=== PATIENT | male | born 1965 | race Caucasian/White ===

== ENCOUNTER 2019-10-23 17:44 | Emergency (ER) | payer OTHER ==
[~2019-10-23] VITALS: Ht 180.3 cm; Wt 81.8 kg
[2019-10-23 18:22] VITALS: BP 134/68
[2019-10-23] MEDS ORDERED: acetaminophen 325mg tablet PO ONE (20:00)
== END 2019-10-23 20:17 | disposition home or self-care (01) ==
LOC: ER 17:45
DX: J11.1 Influenza due to unidentified influenza virus with other respiratory manifestations (principal); Z56.0 Unemployment, unspecified
CPT/HCPCS: 99284

== ENCOUNTER 2019-12-06 18:01 | Emergency (ER) | payer SELFPAY ==
[~2019-12-06] VITALS: Ht 180.3 cm; Wt 82.3 kg
[2019-12-06 18:23] VITALS: BP 116/77
[2019-12-06] MEDS ORDERED: PERM60CR19 TP (19:17)
[2019-12-06] MEDS ORDERED: PRED20TA PO (19:17)
== END 2019-12-06 20:06 | disposition home or self-care (01) ==
LOC: ER 18:02
DX: L30.9 Dermatitis, unspecified (principal); Z56.0 Unemployment, unspecified; Z79.899 Other long term (current) drug therapy
CPT/HCPCS: 99283

== ENCOUNTER 2020-07-04 10:07 | Inpatient (IN) | payer OTHER ==
[~2020-07-04] VITALS: Ht 180.3 cm; Wt 87.3 kg
[2020-07-04 11:40] LABS: BASOPHILS % (AUTO) 0.7 % (0-1); EOSINOPHILS # (AUTO) 0.1 X10'3 (0-0.9); EOSINOPHILS % (AUTO) 2.2 % (0-6); HEMATOCRIT 26.4 % (42.0-52.0); HEMOGLOBIN 8.9 g/dl (14.0-17.9); LYMPHOCYTES # (AUTO) 0.8 X10'3 (1.1-4.8); LYMPHOCYTES % (AUTO) 17.7 % (21-51); MEAN CORPUSCULAR HEMOGLOBIN 30.5 PG (27.0-31.0); MEAN CORPUSCULAR HGB CONC 33.8 g/dL (33.0-36.5); MEAN CORPUSCULAR VOLUME 90.3 FL (78-98); MEAN PLATELET VOLUME 9.5 FL (7.4-10.4); MONOCYTES # (AUTO) 0.4 X10'3 (0-0.9); MONOCYTES % (AUTO) 8.7 % (2-12); NEUTROPHILS # (AUTO) 3.4 X10'3 (1.8-7.7); NEUTROPHILS % (AUTO) 70.7 % (42-75); PLATELET COUNT 165 X10'3 (140-440); RED BLOOD COUNT 2.93 X10'6 (4.70-6.10); RED CELL DISTRIBUTION WIDTH 14.9 % (11.5-14.5); WHITE BLOOD COUNT 4.8 X10'3 (4.5-11.0)
[2020-07-04 11:43] LABS: PARTIAL THROMBOPLASTIN TIME 27 SECONDS (22-32)
[2020-07-04 11:45] LABS: ALANINE AMINOTRANSFERASE 16 U/L (12-78); ALBUMIN 3.3 G/DL (3.4-5.0); ALBUMIN/GLOBULIN RATIO 1.4 (1.1-1.5); ALKALINE PHOSPHATASE 62 IU/L (46-116); ANION GAP 5 (8-16); ASPARTATE AMINO TRANSFERASE 15 U/L (10-37); BILIRUBIN,TOTAL 0.5 MG/DL (0.1-1.0); BLOOD UREA NITROGEN 26 MG/DL (7-18); BUN/CREATININE RATIO 26.3 (5.4-32.0); CALCIUM 8.1 MG/DL (8.5-10.1); CHLORIDE 106 MMOL/L (99-107); CREATININE 0.99 MG/DL (0.60-1.10); GLUCOSE 85 MG/DL (70-104); POTASSIUM 4.7 MMOL/L (3.5-5.1); SODIUM 139 MMOL/L (135-145); TOTAL CARBON DIOXIDE 27.8 MMOL/L (24-32); TOTAL PROTEIN 5.7 G/DL (6.4-8.2); eGFR 78 ML/MIN
[2020-07-04] MEDS ORDERED: tranexamic acid 100mg/ml inj. IV ONE (11:50)
[2020-07-04] MEDS ORDERED: normal saline 1000ML IV soln IVB ONE (12:00)
--- NOTE | 2020-07-04 12:04 | NUR ---
NATHANIEL KELLY ASK FOR PT TO BE PLACED ON CLEAN RICE GRADER AND REEL TENDER. PT NOW ON MONITOR ROBIN NOTIFIED
[2020-07-04] MEDS ORDERED: acetaminophen 325mg tablet PO PRN (12:40)
[2020-07-04] MEDS ORDERED: morphine 2 MG/ML inj. syringe IV PRN (12:40)
[2020-07-04] MEDS ORDERED: mag hydrox/Alum hydrox/simeth 30ml oral suspension PO PRN (12:40)
[2020-07-04] MEDS ORDERED: ondansetron/PF 4mg/2ml inj IV PRN (12:40)
[2020-07-04] MEDS ORDERED: magnesium hydroxide 30ml (MOM) UD suspension PO PRN (12:40)
[2020-07-04] MEDS ORDERED: NO HOME MEDS (13:17)
[2020-07-04] MEDS ORDERED: PEG 3350/Na sulf,bicarb,Cl/KCl oral sol 4 liter bottle PO ONE ×4 (13:20→18:30)
[2020-07-04] MEDS ORDERED: pantoprazole 40MG/NS 100ML BAG 100 ML IV ONE (13:30)
[2020-07-04] MEDS: normal saline 1000ml 1,000 ML IV SCH ×2 (14:43→22:37)
[2020-07-04 14:50] VITALS: BP 96/62
[2020-07-04 16:08] LABS: OCCULT BLOOD STOOL POSITIVE (Neg)
[2020-07-04 18:00] VITALS: BP 95/58
--- NOTE | 2020-07-04 18:16 | NUR ---
Problems reprioritized. Patient report given, questions answered & plan of care reviewed with SHILPI Ching.
--- NOTE | 2020-07-04 18:40 | NUR ---
I have received report from Geovany RN and had the opportunity to ask questions and assume patient care.
[2020-07-04 20:00] VITALS: BP_SYST 94; BP_SYST 97; BP_SYST 98; BP_DIAS 53; BP_DIAS 55; BP_DIAS 67
[2020-07-05] VITALS (13 sets, daily range): BP systolic 98–115; BP diastolic 53–73
[2020-07-05] MEDS: normal saline 1000ml 1,000 ML IV SCH ×2 (01:25→21:16)
--- NOTE | 2020-07-05 06:37 | NUR ---
Problems reprioritized. Patient report given, questions answered & plan of care reviewed with Eve DOBBINS.
--- NOTE | 2020-07-05 11:41 | NUR ---
Pt. taken off floor to GI lab for colonoscopy.
[2020-07-05] MEDS ORDERED: fentaNYL/PF 50MCG/1 ML 2ML syringe ONE (11:51)
[2020-07-05] MEDS ORDERED: MIDAZolam 5mg/5ml vial ONE (11:52)
--- NOTE | 2020-07-05 14:12 | NUR ---
Pt. returned to floor. Report obtained from GI lab. Pt does have ascending colon mass. Biopsy was taken and Christiane was consulted. Pt. to remain NPO for possible surgery.
--- NOTE | 2020-07-05 16:23 | NUR ---
Dr. Grande consulted with pt and stated surgery on Tuesday, bowel prep on Tuesday, NPO after MN on Tuesday, clear liquids until then.
[2020-07-05 17:11] LABS: BASOPHILS % (AUTO) 0.5 % (0-1); EOSINOPHILS # (AUTO) 0.1 X10'3 (0-0.9); EOSINOPHILS % (AUTO) 2.2 % (0-6); HEMATOCRIT 23.4 % (42.0-52.0); HEMOGLOBIN 7.8 g/dl (14.0-17.9); LYMPHOCYTES # (AUTO) 1.1 X10'3 (1.1-4.8); LYMPHOCYTES % (AUTO) 25.4 % (21-51); MEAN CORPUSCULAR HEMOGLOBIN 29.9 PG (27.0-31.0); MEAN CORPUSCULAR HGB CONC 33.1 g/dL (33.0-36.5); MEAN CORPUSCULAR VOLUME 90.2 FL (78-98); MEAN PLATELET VOLUME 9.4 FL (7.4-10.4); MONOCYTES # (AUTO) 0.3 X10'3 (0-0.9); MONOCYTES % (AUTO) 7.6 % (2-12); NEUTROPHILS # (AUTO) 2.9 X10'3 (1.8-7.7); NEUTROPHILS % (AUTO) 64.3 % (42-75); PLATELET COUNT 145 X10'3 (140-440); RED BLOOD COUNT 2.59 X10'6 (4.70-6.10); RED CELL DISTRIBUTION WIDTH 15.3 % (11.5-14.5); WHITE BLOOD COUNT 4.5 X10'3 (4.5-11.0)
[2020-07-05 17:18] LABS: ALBUMIN 2.8 G/DL (3.4-5.0); ANION GAP 6 (8-16); BLOOD UREA NITROGEN 10 MG/DL (7-18); CALCIUM 7.9 MG/DL (8.5-10.1); CHLORIDE 110 MMOL/L (99-107); CREATININE 0.91 MG/DL (0.60-1.10); GLUCOSE 103 MG/DL (70-104); SODIUM 143 MMOL/L (135-145); TOTAL CARBON DIOXIDE 27.4 MMOL/L (24-32); eGFR 86 ML/MIN
--- NOTE | 2020-07-05 18:49 | NUR ---
Patient in room [facility]. I have received report from CHADWICK DOBBINS and had the opportunity to ask questions and assume patient care.
--- NOTE | 2020-07-05 18:50 | NUR ---
Gave report to Prudence SHILPI.
[2020-07-05] MEDS: diatr meglu/diatrizoate 30ml oral sol.-(3 dose) bottle PO SCH (21:11)
[2020-07-06] VITALS: BP 103/59
[2020-07-06] MEDS: normal saline 1000ml 1,000 ML IV SCH ×3 (04:37→19:23)
--- NOTE | 2020-07-06 06:22 | NUR ---
Problems reprioritized. Patient report given, questions answered & plan of care reviewed with REESE DOBBINS.
[2020-07-06] MEDS: diatr meglu/diatrizoate 30ml oral sol.-(3 dose) bottle PO SCH ×2 (07:25→11:00)
[2020-07-06 07:28] VITALS: BP 95/47
[2020-07-06 09:28] LABS: ALBUMIN 3.1 G/DL (3.4-5.0); ANION GAP 4 (8-16); BLOOD UREA NITROGEN 6 MG/DL (7-18); BUN/CREATININE RATIO 6.3 (5.4-32.0); CALCIUM 8.2 MG/DL (8.5-10.1); CHLORIDE 109 MMOL/L (99-107); CREATININE 0.96 MG/DL (0.60-1.10); GLUCOSE 111 MG/DL (70-104); POTASSIUM 3.9 MMOL/L (3.5-5.1); SODIUM 143 MMOL/L (135-145); TOTAL CARBON DIOXIDE 29.6 MMOL/L (24-32); eGFR 81 ML/MIN
[2020-07-06 09:55] LABS: BASOPHILS % (AUTO) 0.4 % (0-1); EOSINOPHILS # (AUTO) 0.1 X10'3 (0-0.9); EOSINOPHILS % (AUTO) 2.6 % (0-6); HEMOGLOBIN 8.8 g/dl (14.0-17.9); LYMPHOCYTES # (AUTO) 1.4 X10'3 (1.1-4.8); LYMPHOCYTES % (AUTO) 26.7 % (21-51); MEAN CORPUSCULAR HEMOGLOBIN 30.7 PG (27.0-31.0); MEAN CORPUSCULAR HGB CONC 33.9 g/dL (33.0-36.5); MEAN CORPUSCULAR VOLUME 90.5 FL (78-98); MEAN PLATELET VOLUME 9.9 FL (7.4-10.4); MONOCYTES # (AUTO) 0.4 X10'3 (0-0.9); MONOCYTES % (AUTO) 7.5 % (2-12); NEUTROPHILS # (AUTO) 3.3 X10'3 (1.8-7.7); NEUTROPHILS % (AUTO) 62.8 % (42-75); PLATELET COUNT 177 X10'3 (140-440); RED BLOOD COUNT 2.87 X10'6 (4.70-6.10); RED CELL DISTRIBUTION WIDTH 15.2 % (11.5-14.5); WHITE BLOOD COUNT 5.3 X10'3 (4.5-11.0)
[2020-07-06] MEDS ORDERED: iohexol 300mg/ml 100ml inj. ONE (10:13)
[2020-07-06 11:00] VITALS: BP 115/74
--- NOTE | 2020-07-06 11:45 | NUR ---
Patient in room [facility]. I have received report from Fam DOBBINS and had the opportunity to ask questions and assume patient care.
--- NOTE | 2020-07-06 11:45 | NUR ---
Problems reprioritized. Patient report given, questions answered & plan of care reviewed with SHILPI Ann.
--- NOTE | 2020-07-06 12:00 | NUR ---
Reviewed and agree with pt's a.m. assessment, except pt awake and ambulating brower with no complaints at this time. Will continue to monitor.
--- NOTE | 2020-07-06 12:52 | NUR ---
PAGER ID: [phone] MESSAGE: re: [id number], Matthias Gilliland CT abd has resulted. Ok for pt to resume clear liquid diet unitl NPO at MN? thank you, Marissa grider 1953
[2020-07-06] MEDS ORDERED: PEG 3350/Na sulf,bicarb,Cl/KCl oral sol 4 liter bottle PO ONE (15:00)
--- NOTE | 2020-07-06 18:15 | NUR ---
Problems reprioritized. Patient report given, questions answered & plan of care reviewed with Malena DOBBINS.
[2020-07-06 18:30] VITALS: BP 107/66
[2020-07-06] MEDS ORDERED: ceFOXitin 2GM-NS 100mL ADDvant 100 ML IV ONE (19:50)
[2020-07-06] MEDS ORDERED: neomycin sulfate 500mg tablet PO ONE (21:00)
[2020-07-06] MEDS: erythromycin base 250mg tablet PO SCH ×2 (22:02→23:48)
[2020-07-06] MEDS: neomycin sulfate 500mg tablet PO SCH ×2 (22:02→23:46)
[2020-07-06 23:21] VITALS: BP_SYST 107; BP_SYST 122; BP_DIAS 57; BP_DIAS 73
[2020-07-07] VITALS (21 sets, daily range): BP systolic 99–123; BP diastolic 53–82
[2020-07-07] MEDS: erythromycin base 250mg tablet PO SCH (00:57)
[2020-07-07] MEDS: neomycin sulfate 500mg tablet PO SCH (00:57)
[2020-07-07 05:26] LABS: PARTIAL THROMBOPLASTIN TIME 27 SECONDS (22-32)
[2020-07-07 05:32] LABS: BASOPHILS % (AUTO) 0.6 % (0-1); EOSINOPHILS # (AUTO) 0.1 X10'3 (0-0.9); EOSINOPHILS % (AUTO) 2.5 % (0-6); HEMATOCRIT 25.6 % (42.0-52.0); HEMOGLOBIN 8.5 g/dl (14.0-17.9); LYMPHOCYTES # (AUTO) 0.9 X10'3 (1.1-4.8); LYMPHOCYTES % (AUTO) 22.3 % (21-51); MEAN CORPUSCULAR HEMOGLOBIN 29.9 PG (27.0-31.0); MEAN CORPUSCULAR HGB CONC 33.1 g/dL (33.0-36.5); MEAN CORPUSCULAR VOLUME 90.4 FL (78-98); MEAN PLATELET VOLUME 9.7 FL (7.4-10.4); MONOCYTES # (AUTO) 0.4 X10'3 (0-0.9); NEUTROPHILS # (AUTO) 2.8 X10'3 (1.8-7.7); NEUTROPHILS % (AUTO) 65.6 % (42-75); PLATELET COUNT 175 X10'3 (140-440); RED BLOOD COUNT 2.83 X10'6 (4.70-6.10); RED CELL DISTRIBUTION WIDTH 15.1 % (11.5-14.5); WHITE BLOOD COUNT 4.3 X10'3 (4.5-11.0)
[2020-07-07 05:42] LABS: ALBUMIN 3.1 G/DL (3.4-5.0); ANION GAP 8 (8-16); BLOOD UREA NITROGEN 5 MG/DL (7-18); BUN/CREATININE RATIO 5.4 (5.4-32.0); CALCIUM 8.5 MG/DL (8.5-10.1); CHLORIDE 108 MMOL/L (99-107); CREATININE 0.93 MG/DL (0.60-1.10); GLUCOSE 102 MG/DL (70-104); POTASSIUM 3.7 MMOL/L (3.5-5.1); SODIUM 144 MMOL/L (135-145); TOTAL CARBON DIOXIDE 27.6 MMOL/L (24-32); eGFR 84 ML/MIN
--- NOTE | 2020-07-07 06:20 | NUR ---
Patient in room [facility]. I have received report from chichi JAY RN and had the opportunity to ask questions and assume patient care.
--- NOTE | 2020-07-07 06:29 | NUR ---
Problems reprioritized. Patient report given, questions answered & plan of care reviewed with Ella DOBBINS.
--- NOTE | 2020-07-07 06:45 | NUR ---
Patient in room [facility]. I have received report from Malena Dubon RN and had the opportunity to ask questions and assume patient care.
[2020-07-07] MEDS ORDERED: BUPIVAcaine/PF 2.5 mg/ml (0.25%) 30ml vial ONE (10:59)
--- NOTE | 2020-07-07 12:03 | NUR ---
Student documentation: I have reviewed and agree with all interventions, assessments performed and documented by Jordin, associate director of nursing.
[2020-07-07] MEDS ORDERED: ceFOXitin sod/dextrose 2g/50ml 50 ML IV ONE (12:10)
--- NOTE | 2020-07-07 12:11 | NUR ---
Report called to OR, patient off the unit to OR.
--- NOTE | 2020-07-07 12:13 | NUR ---
Problems reprioritized. Patient report given, questions answered & plan of care reviewed with RACHEL Dawson
[2020-07-07] MEDS ORDERED: sevoflurane 250ml liquid IH ONE (13:19)
[2020-07-07] MEDS ORDERED: midazolam 2 mg/2 ml injection ONE (13:22)
[2020-07-07] MEDS ORDERED: fentaNYL /PF 50mcg/ml 5ml ampule ONE (13:22)
[2020-07-07] MEDS ORDERED: propofol inj 20 ML IV ONE (13:23)
[2020-07-07] MEDS ORDERED: rocuronium 10mg/ml inj IV ONE ×2 (14:00)
[2020-07-07] MEDS ORDERED: INDOCYANINE GREEN 25 MG/10 ML VIAL IV ONE (14:07)
[2020-07-07] MEDS ORDERED: ringers solution, lacted 1,000 ML IV SCH (14:51)
[2020-07-07] MEDS ORDERED: ondansetron/PF 4mg/2ml inj IV PRN ×2 (14:55→17:50)
[2020-07-07] MEDS ORDERED: morphine 4 MG/ML inj SYRINge IV PRN (14:55)
[2020-07-07] MEDS ORDERED: morphine 2 MG/ML inj. syringe IV PRN (14:55)
[2020-07-07] MEDS ORDERED: meperidine/PF 25mg/ml syringe IV PRN ×3 (14:55)
[2020-07-07] MEDS ORDERED: proCHLORperazine 10 MG/2 ml inj IV PRN (14:55)
[2020-07-07] MEDS ORDERED: BUPIVACAINE liposomal/PF 13.3 MG/ML vial IM ONE (16:28)
[2020-07-07] MEDS ORDERED: BUPIVAcaine/PF 2.5mg/ml (0.25%) 10ml vial ONE ×2 (16:28→16:31)
[2020-07-07] MEDS ORDERED: neostigmine methylsulfate 1 MG/ML 10ml vial ONE (16:43)
[2020-07-07] MEDS ORDERED: glycopyrrolate 0.2mg/ml inj ONE (16:43)
--- NOTE | 2020-07-07 17:09 | NUR ---
Received from OR via surgical bed, accompanied by Anesthesiologist Bina and report given by Anesthesiolgist. Lap sites x4 to abdomen, bandaids and very small island dressing all CDI. 20G right AC and IVF LR at 100cc/hr running. All VS WNL and mask to 10L sats 100%. SCDs on. Alejo cath draining yellow urine.
--- NOTE | 2020-07-07 17:12 | NUR ---
Student documentation: I have reviewed interventions, assessments performed and documented by Yasmine SOLOMON for [facility]. Student Medication Administration: For medication-pass' in the time frame of 0600 to 1830, all medication were reviewed, dispensed, administered and documented per hospital policy by Yasmine SOLOMON for [facility].
[2020-07-07] MEDS ORDERED: acetaminophen 1,000mg/100ml IV 100 ML IV ONE (17:35)
[2020-07-07] MEDS ORDERED: ketorolac trometh. 30mg/ml inj. IV ONE (17:35)
[2020-07-07] MEDS ORDERED: HYDROcodone/acetaminophen 10/325mg tab PO PRN (17:50)
--- NOTE | 2020-07-07 18:15 | NUR ---
Problems reprioritized. Patient report given, questions answered & plan of care reviewed with Malena DOBBINS.
--- NOTE | 2020-07-07 18:16 | NUR ---
Problems reprioritized. Patient report given, questions answered & plan of care reviewed with Malena DOBBINS.
--- NOTE | 2020-07-07 18:35 | NUR ---
Received report from Maryam DOBBINS in recovery. Pt arrived on the unit in his own bed. Belongings were still at bedside. Pt has 3 large bandaids and 1 small square island dressing, all CD&I. VSS on 2L O2 via N/C satting at 94 %. SCD's were placed. Pt has no signs of distress, will continue to monitor.
--- NOTE | 2020-07-07 18:39 | NUR ---
Patient in room [facility]. I have received report from Ella DOBBINS and had the opportunity to ask questions and assume patient care.
--- NOTE | 2020-07-07 18:49 | NUR ---
Report called to receiving nurse. Transferred via bed. Belongings remained in patient's room. Special Issues communicated to receiving nurse Balbina DOBBINS who was at the bedside to receive patient. BLL call light within reach. Chart at bedside. SCDs on.
[2020-07-07] MEDS: ketorolac trometh. 30mg/ml inj. IV SCH (21:04)
[2020-07-07] MEDS: gabapentin 300mg capsule PO SCH (21:05)
[2020-07-08] MEDS ORDERED: ceFOXitin 1 GM/D5W 50mL IVPB 50 ML IV SCH
[2020-07-08] MEDS: morphine 2 MG/ML inj. syringe IV PRN (00:06)
[2020-07-08] MEDS: ceFOXitin inj 1,000 MG in normal saline 100ml IV soln 100 ML IV SCH ×2 (00:13→08:27)
[2020-07-08] MEDS: potassium CL 20mEq in D5-1/2NS 1,000 ML IV SCH ×4 (00:14→17:48)
[2020-07-08] MEDS: normal saline 1000ml 1,000 ML IV SCH (03:10)
[2020-07-08 03:43] VITALS: BP 124/77
[2020-07-08] MEDS: ketorolac trometh. 30mg/ml inj. IV SCH ×5 (04:17→19:31)
--- NOTE | 2020-07-08 06:02 | NUR ---
Problems reprioritized. Patient report given, questions answered & plan of care reviewed with Philipp RN.
[2020-07-08 07:00] VITALS: BP 120/74
[2020-07-08] MEDS: gabapentin 300mg capsule PO SCH ×2 (08:07→19:32)
[2020-07-08 10:09] LABS: BASOPHILS % (AUTO) 0.3 % (0-1); EOSINOPHILS # (AUTO) 0.1 X10'3 (0-0.9); EOSINOPHILS % (AUTO) 0.8 % (0-6); HEMOGLOBIN 7.7 g/dl (14.0-17.9); LYMPHOCYTES # (AUTO) 0.7 X10'3 (1.1-4.8); LYMPHOCYTES % (AUTO) 10.2 % (21-51); MEAN CORPUSCULAR HEMOGLOBIN 30.1 PG (27.0-31.0); MEAN CORPUSCULAR HGB CONC 33.4 g/dL (33.0-36.5); MEAN CORPUSCULAR VOLUME 90.1 FL (78-98); MEAN PLATELET VOLUME 8.8 FL (7.4-10.4); MONOCYTES # (AUTO) 0.5 X10'3 (0-0.9); MONOCYTES % (AUTO) 7.6 % (2-12); NEUTROPHILS # (AUTO) 5.7 X10'3 (1.8-7.7); NEUTROPHILS % (AUTO) 81.1 % (42-75); PLATELET COUNT 165 X10'3 (140-440); RED BLOOD COUNT 2.56 X10'6 (4.70-6.10); RED CELL DISTRIBUTION WIDTH 14.6 % (11.5-14.5); WHITE BLOOD COUNT 7.1 X10'3 (4.5-11.0)
[2020-07-08 10:21] LABS: ALBUMIN 2.6 G/DL (3.4-5.0); ANION GAP 0 (8-16); BLOOD UREA NITROGEN 5 MG/DL (7-18); BUN/CREATININE RATIO 5.6 (5.4-32.0); CALCIUM 7.8 MG/DL (8.5-10.1); CHLORIDE 104 MMOL/L (99-107); GLUCOSE 124 MG/DL (70-104); POTASSIUM 3.9 MMOL/L (3.5-5.1); SODIUM 135 MMOL/L (135-145); TOTAL CARBON DIOXIDE 30.6 MMOL/L (24-32); eGFR 87 ML/MIN
[2020-07-08 11:43] VITALS: BP 116/71
[2020-07-08] MEDS: HYDROcodone/acetaminophen 5mg/325mg tablet PO PRN (11:53)
--- NOTE | 2020-07-08 12:00 | NUR ---
Patient in room [facility]. I have received report from Philipp DOBBINS and had the opportunity to ask questions and assume patient care.
--- NOTE | 2020-07-08 13:20 | NUR ---
Verified provider orders to remove catheter one day post surgery. Received instructions from Philipp RN on how to DC catheter and perform procedure. Explained procedure to Pt he consented to procedure. Procedure was successful, catheter was intact on inspection after removal, approximately 2200 mL were emptied prior to catheter DC. Instructed pt to let RN/student know if he experiences voiding issues or any discomfort with voiding, provided pt with urinal to use.
--- NOTE | 2020-07-08 16:18 | NUR ---
Changed wound dressing per provider orders, every two days. Followed Philipp DOBBINS instructions, cleaned wound with normal saline, dubbed wound with gauze until dry. Applied therahoney on alginate and applied it to wound. Applied optiform as seconday dressing. Wound appeared pink with slough on the edges. Addendum: 07/08/20 at 1721 by Linh BRANCH This note was placed on a wrong Pt chart, disregard its contents
[2020-07-08 17:29] VITALS: BP_SYST 109; BP_SYST 110; BP_DIAS 70; BP_DIAS 71
--- NOTE | 2020-07-08 17:52 | NUR ---
Problems reprioritized. Patient report given, questions answered & plan of care reviewed with SHILPI Segal.
--- NOTE | 2020-07-08 18:40 | NUR ---
I have received report from Philipp DOBBINS and had the opportunity to ask questions and assume patient care.
--- NOTE | 2020-07-08 18:57 | NUR ---
Problems reprioritized. Patient report given, questions answered & plan of care reviewed with Jeane DOBBINS.
[2020-07-08 20:00] VITALS: BP 103/74
[2020-07-09] VITALS: BP 105/66
[2020-07-09] MEDS: ketorolac trometh. 30mg/ml inj. IV SCH ×4 (01:46→20:56)
[2020-07-09] MEDS: potassium CL 20mEq in D5-1/2NS 1,000 ML IV SCH ×2 (01:48→09:48)
[2020-07-09 04:59] LABS: BASOPHILS % (AUTO) 0.2 % (0-1); EOSINOPHILS # (AUTO) 0.1 X10'3 (0-0.9); EOSINOPHILS % (AUTO) 2.1 % (0-6); HEMATOCRIT 22.4 % (42.0-52.0); HEMOGLOBIN 7.7 g/dl (14.0-17.9); LYMPHOCYTES % (AUTO) 17.3 % (21-51); MEAN CORPUSCULAR HGB CONC 34.5 g/dL (33.0-36.5); MEAN PLATELET VOLUME 9.4 FL (7.4-10.4); MONOCYTES # (AUTO) 0.4 X10'3 (0-0.9); MONOCYTES % (AUTO) 7.6 % (2-12); NEUTROPHILS % (AUTO) 72.8 % (42-75); PLATELET COUNT 173 X10'3 (140-440); RED BLOOD COUNT 2.49 X10'6 (4.70-6.10); RED CELL DISTRIBUTION WIDTH 14.7 % (11.5-14.5); WHITE BLOOD COUNT 5.5 X10'3 (4.5-11.0)
[2020-07-09 05:09] LABS: ALBUMIN 2.6 G/DL (3.4-5.0); ANION GAP 4 (8-16); BLOOD UREA NITROGEN 4 MG/DL (7-18); BUN/CREATININE RATIO 4.7 (5.4-32.0); CALCIUM 8.2 MG/DL (8.5-10.1); CHLORIDE 106 MMOL/L (99-107); CREATININE 0.85 MG/DL (0.60-1.10); GLUCOSE 105 MG/DL (70-104); POTASSIUM 3.8 MMOL/L (3.5-5.1); SODIUM 138 MMOL/L (135-145); TOTAL CARBON DIOXIDE 28.5 MMOL/L (24-32); eGFR > 90 ML/MIN
--- NOTE | 2020-07-09 06:30 | NUR ---
Patient in room [facility]. I have received report from Jeane DOBBINS and had the opportunity to ask questions and assume patient care.
--- NOTE | 2020-07-09 06:41 | NUR ---
Problems reprioritized. Patient report given, questions answered & plan of care reviewed with Tess DOBBINS.
[2020-07-09 07:00] VITALS: BP 102/52
[2020-07-09] MEDS: gabapentin 300mg capsule PO SCH ×2 (07:57→20:57)
--- NOTE | 2020-07-09 09:45 | NUR ---
Received permission from patients to tell his fisheries officer nikki when he arrived to the hospital. Transferred call into patient.
[2020-07-09 11:00] VITALS: BP 111/74
[2020-07-09] MEDS: HYDROcodone/acetaminophen 5mg/325mg tablet PO PRN (12:32)
--- NOTE | 2020-07-09 14:15 | NUR ---
Initial: Pt s/p laparoscopic R colectomy for colon mass admit DX lower GIB r/t mass possible neoplasia pending biopsy per EMR. Advanced to full liquid diet today from clear prior PO 75% breakfast today up from 25-50% prior clears. Abdominal pain noted yesterday likely to impact PO as well. LBM 07/05 small receiving PRN morphine and norco; may benefit from opioid antagonist as medically indicated post-op. RD recommends ensure high protein TIDWM; MD notified. Will monitor for PO diet advancement, tolerance, and additional protein needs this admit. Rec: 1. advance diet as medically indicated to low-residue 2. ensure high protein TIDWM 3. routine bowel care post-op; opioid antagonist if MD agreeable receiving norco and morphine PRN 4. scaled wt this admit Addendum: 07/09/20 at [address] Amended: Links added.
--- NOTE | 2020-07-09 16:07 | NUR ---
Student documentation: I have reviewed all interventions, assessments performed and documented by Luis Manuel SOLOMON from [facility]. Student Medication Administration: For medications-passed in the time frame of 1200 to 1800, all medication were reviewed, dispensed, administered and documented per hospital policy by Luis Manuel SOLOMON from [facility].
--- NOTE | 2020-07-09 18:31 | NUR ---
Patient in room [facility]. I have received report from Tess DOBBINS and had the opportunity to ask questions and assume patient care.
[2020-07-09 20:00] VITALS: BP 99/59
[2020-07-10] VITALS: BP 101/65
--- NOTE | 2020-07-10 06:36 | NUR ---
Problems reprioritized. Patient report given, questions answered & plan of care reviewed with Eve DOBBINS.
[2020-07-10 07:24] VITALS: BP 100/64
[2020-07-10] MEDS: gabapentin 300mg capsule PO SCH ×2 (09:03→19:04)
[2020-07-10] MEDS: HYDROcodone/acetaminophen 5mg/325mg tablet PO PRN ×2 (09:05→14:10)
[2020-07-10 11:00] VITALS: BP 103/70
[2020-07-10] MEDS: HYDROcodone/acetaminophen 10/325mg tab PO PRN (18:53)
[2020-07-10 19:00] VITALS: BP 97/47
[2020-07-11] VITALS: BP 91/55
--- NOTE | 2020-07-11 04:58 | NUR ---
PATIENT REFUSED MIDNIGHT VITAL SIGN Addendum: 07/11/20 at 0458 by Alicja Brown RN Amended: Links added.
[2020-07-11] MEDS: lactose-reduced food (Ensure High Protein) 237ml bottle PO SCH ×3 (08:00→18:11)
[2020-07-11] MEDS: gabapentin 300mg capsule PO SCH ×2 (08:03→19:13)
[2020-07-11] MEDS: magnesium hydroxide 30ml (MOM) UD suspension PO SCH ×2 (08:03→19:13)
[2020-07-11 09:02] VITALS: BP 92/48
[2020-07-11 11:46] VITALS: BP 98/57
[2020-07-11 13:40] LABS: URINE AMPHETAMINE SCREEN NEGATIVE (Neg); URINE BARBITUATE SCREEN NEGATIVE (Neg); URINE BENZODIAZEPINES SCREEN NEGATIVE (Neg); URINE CANNABINOID SCREEN NEGATIVE (Neg); URINE COCAINE SCREEN NEGATIVE (Neg); URINE METHADONE SCREEN NEGATIVE (Neg); URINE OPIATE SCREEN NEGATIVE (Neg); URINE PHENCYCLIDINE SCREEN NEGATIVE (Neg)
--- NOTE | 2020-07-11 15:04 | NUR ---
Dr Grande ok for patient to be discharged from surgeons standpoint.
[2020-07-11] MEDS: HYDROcodone/acetaminophen 10/325mg tab PO PRN (17:05)
[2020-07-11 18:00] VITALS: BP 118/66
--- NOTE | 2020-07-11 18:23 | NUR ---
Problems reprioritized. Patient report given, questions answered & plan of care reviewed with PRUDENCE RN.
--- NOTE | 2020-07-11 18:38 | NUR ---
Patient in room [facility]. I have received report from DIMAS DOBBINS and had the opportunity to ask questions and assume patient care.
[2020-07-11] MEDS: morphine 2 MG/ML inj. syringe IV PRN (19:14)
[2020-07-12] VITALS: BP 91/55
--- NOTE | 2020-07-12 06:15 | NUR ---
Patient in room [facility]. I have received report from SHILPI Helm and had the opportunity to ask questions and assume patient care.
[2020-07-12 07:01] VITALS: BP 82/40
[2020-07-12] MEDS: gabapentin 300mg capsule PO SCH ×2 (08:23→19:15)
[2020-07-12] MEDS: lactose-reduced food (Ensure High Protein) 237ml bottle PO SCH ×3 (08:23→18:09)
[2020-07-12] MEDS: magnesium hydroxide 30ml (MOM) UD suspension PO SCH ×3 (08:23→20:44)
[2020-07-12 08:25] VITALS: BP 108/63
[2020-07-12] MEDS: HYDROcodone/acetaminophen 10/325mg tab PO PRN ×3 (08:33→19:16)
[2020-07-12 11:00] VITALS: BP 104/69
--- NOTE | 2020-07-12 18:05 | NUR ---
Problems reprioritized. Patient report given, questions answered & plan of care reviewed with SHILPI Llanos.
[2020-07-12 20:00] VITALS: BP 99/69
[2020-07-13] VITALS: BP 102/53
--- NOTE | 2020-07-13 06:05 | NUR ---
Patient in room [facility]. I have received report from SHILPI Llanos and had the opportunity to ask questions and assume patient care.
--- NOTE | 2020-07-13 06:15 | NUR ---
Problems reprioritized. Patient report given, questions answered & plan of care reviewed with Aicha RN.
[2020-07-13 07:00] VITALS: BP 90/60
[2020-07-13] MEDS: lactose-reduced food (Ensure High Protein) 237ml bottle PO SCH ×3 (08:26→17:34)
[2020-07-13 08:30] VITALS: BP 108/60
[2020-07-13] MEDS: gabapentin 300mg capsule PO SCH ×2 (08:30→20:30)
[2020-07-13] MEDS: magnesium hydroxide 30ml (MOM) UD suspension PO SCH ×2 (08:30→20:29)
[2020-07-13] MEDS: HYDROcodone/acetaminophen 10/325mg tab PO PRN ×2 (08:32→14:47)
[2020-07-13 11:00] VITALS: BP 92/57
[2020-07-13] MEDS: hydrocortisone 1% cream 28gm TP SCH (15:30)
[2020-07-13] MEDS: acetaminophen 325mg tablet PO PRN (18:03)
--- NOTE | 2020-07-13 18:05 | NUR ---
Problems reprioritized. Patient report given, questions answered & plan of care reviewed with Bella RN.
[2020-07-13 19:42] VITALS: BP 117/76
[2020-07-14] VITALS: BP 95/59
--- NOTE | 2020-07-14 06:00 | NUR ---
Patient in room [facility]. I have received report from Pat RN and had the opportunity to ask questions and assume patient care.
[2020-07-14 07:00] VITALS: BP 94/62
[2020-07-14 07:45] VITALS: BP 94/62
[2020-07-14] MEDS: gabapentin 300mg capsule PO SCH ×2 (07:48→19:25)
[2020-07-14] MEDS: magnesium hydroxide 30ml (MOM) UD suspension PO SCH ×2 (07:49→19:24)
[2020-07-14] MEDS: HYDROcodone/acetaminophen 10/325mg tab PO PRN (07:49)
[2020-07-14] MEDS: lactose-reduced food (Ensure High Protein) 237ml bottle PO SCH ×3 (08:00→18:00)
[2020-07-14] MEDS: hydrocortisone 1% cream 28gm TP SCH ×2 (08:00→19:25)
[2020-07-14 11:55] VITALS: BP 102/60
--- NOTE | 2020-07-14 14:30 | NUR ---
Helen in SS to floor asking why patient still admitted, she states that she "thought patient was discharged over the weekend." Advised her to speak to Briseida in CM. Patient has been stating that he has some "road blocks" and that he feels he needs to stay another [address] Grande in to see patient at patients request. Patient with a BM today and voiding well. No changes today in his situation.
[2020-07-14] MEDS: acetaminophen 325mg tablet PO PRN (14:53)
--- NOTE | 2020-07-14 14:56 | NUR ---
Reassessment: good appetite. PO intake 75-100% with 100% PO intake ensure high protein. Last BM 07/08, small; receiving milk of mag BID. Will follow. Rec: 1. Continue regular diet 2. ensure high protein TIDWM 3. routine bowel care 4. scaled wt this admit Addendum: 07/14/20 at [address] Amended: Links added.
--- NOTE | 2020-07-14 18:00 | NUR ---
Patient in room [facility]. I have received report from Ella DOBBINS and had the opportunity to ask questions and assume patient care.
--- NOTE | 2020-07-14 18:00 | NUR ---
Patient in room [facility]. I have received report from Ella DOBBINS and had the opportunity to ask questions and assume patient care.
--- NOTE | 2020-07-14 18:16 | NUR ---
Problems reprioritized. Patient report given, questions answered & plan of care reviewed with Silvia DOBBINS.
[2020-07-14 20:00] VITALS: BP 101/60
[2020-07-15] VITALS: BP 94/61
--- NOTE | 2020-07-15 06:48 | NUR ---
Problems reprioritized. Patient report given, questions answered & plan of care reviewed with Michelle RN.
--- NOTE | 2020-07-15 06:51 | NUR ---
Patient in room [facility]. I have received report from Aakash and had the opportunity to ask questions and assume patient care.
[2020-07-15 08:00] VITALS: BP 95/62
[2020-07-15] MEDS: magnesium hydroxide 30ml (MOM) UD suspension PO SCH (08:00)
[2020-07-15] MEDS: gabapentin 300mg capsule PO SCH (08:24)
[2020-07-15] MEDS: hydrocortisone 1% cream 28gm TP SCH (08:25)
[2020-07-15] MEDS: lactose-reduced food (Ensure High Protein) 237ml bottle PO SCH ×2 (08:32→13:14)
--- NOTE | 2020-07-15 11:26 | NUR ---
Problems reprioritized. Patient report given, questions answered & plan of care reviewed with Michelle.
--- NOTE | 2020-07-15 11:30 | NUR ---
Notified Dr. Lundberg that this patient is refusing a biopsy procedure. Pt only wants "the fluid off my stomach and im out of here." Addendum: 07/15/20 at 1204 by Michelle Maguire RN disregard. wrong patient.l
[2020-07-15 11:52] VITALS: BP 106/67
[2020-07-15] MEDS ORDERED: HYDR-4383 PO ×2 (12:30→12:31)
--- NOTE | 2020-07-15 13:30 | NUR ---
Entered patient's room to go over discharge instructions with pt, but patient refuses to be discharged until he has a shower. Set up shower for patient.
--- NOTE | 2020-07-15 13:40 | NUR ---
Entered pt's room after shower was made ready to communicate and pt concerned about his bandaids and "incision" before he gets into the shower. Informed pt that he has steri strips under his band aids and no "incision" and that to keep them as dry as possible and pat dry after showering.
--- NOTE | 2020-07-15 14:00 | NUR ---
Went into pt's room after pt finally back from shower. patient on the phone and making "shooing" motions with hand, waving nurse out of the room and states he will be discharged after his phone call and "he needs space."
--- NOTE | 2020-07-15 14:15 | NUR ---
Patient still on phone; security on the floor and informing patient he has had enough time on the phone. patient finished up his phone call and I went over discharge instructions with him. Patient understands he is to follow up with Dr. Grande in one week and Dr. Robertson for oncology consult. Both office numbers have been provided for the patient.
--- NOTE | 2020-07-15 14:20 | NUR ---
handed patient his written Hymera 5/[address] aVlencia and instructed pt not to take it more than three times/day as needed for pain. Patient gathered all his belongings and discharge instructions and Hymera script and was escorted out by security.
== END 2020-07-15 14:25 | disposition home or self-care (01) | DRG 330 ==
LOC: ER 10:07 → ED HOLD 12:37 → SUR 3N 13:49
PROVIDERS: ADMIT Internal Medicine; ATTEND Internal Medicine
PROC: 0DBK8ZX Excision of Ascending Colon, Via Natural or Artificial Opening Endoscopic, Diagnostic (ICD-10-PCS; 2020-07-05)
PROC: BW211ZZ Computerized Tomography (CT Scan) of Abdomen and Pelvis using Low Osmolar Contrast (ICD-10-PCS; 2020-07-06)
PROC: 8E0W4CZ Robotic Assisted Procedure of Trunk Region, Percutaneous Endoscopic Approach (ICD-10-PCS; 2020-07-07)
PROC: 0DTF4ZZ Resection of Right Large Intestine, Percutaneous Endoscopic Approach (ICD-10-PCS; principal; 2020-07-07 13:19)
DX: C18.9 Malignant neoplasm of colon, unspecified (principal); D62 Acute posthemorrhagic anemia; K92.1 Melena; D50.9 Iron deficiency anemia, unspecified; F12.90 Cannabis use, unspecified, uncomplicated; Z80.1 Family history of malignant neoplasm of trachea, bronchus and lung
CPT/HCPCS: 45380; 45381; 96374; 99285; Z7506; Z7508; 36415; 74176; 74177; 76937; 80048; 80053; 80305; 82272; 82378; 82948; 83880; 85025; 85610; 85730; 86885; 86900; 86901; 86920; 87081; 93005; 99152; 99153; A4215; A4618; A4620; A6402; A7000; C1758; C9113; C9290; G0378; J0131; J0694; J1885; J2175; J2250; J2270; J2405; J2704; J2710; J3010; J3480; J3490; J7030; J7040; J7120; Q9963; Q9967

== ENCOUNTER 2021-05-06 12:30 | Emergency (ER) | payer MEDICAID ==
[~2021-05-06] VITALS: Ht 180.3 cm; Wt 82.0 kg
[~2021-05-06 12:30] MED LIST: HYDR-4383 PO
[2021-05-06 12:49] VITALS: BP 113/59
[2021-05-06] MEDS ORDERED: HYDROcodone/acetaminophen 5mg/325mg tablet PO ONE (21:05)
[2021-05-06] MEDS ORDERED: ondansetron 4mg rapidly disintigrating tab PO ONE (21:05)
[2021-05-06 21:29] LABS: CLARITY,URINE CLOUDY (Clear); COLOR,URINE YELLOW (Yellow); GLUCOSE, URINE NEGATIVE (Neg); KETONES,URINE 15 mg/dl (Neg); LEUKOCYTE ESTERASE ,URINE LARGE (Neg); NITRITES, URINE NEGATIVE (Neg); OCCULT BLOOD,URINE LARGE (Neg); PROTEIN,URINE 100 mg/dl (Neg); UROBILINOGEN,URINE 0.2 E.U/dL (0.2-1.0)
[2021-05-06 21:31] LABS: BASOPHILS % (AUTO) 0.2 % (0-1); EOSINOPHILS % (AUTO) 0.2 % (0-6); HEMATOCRIT 38.6 % (42.0-52.0); LYMPHOCYTES # (AUTO) 1.1 X10'3 (1.1-4.8); LYMPHOCYTES % (AUTO) 8.8 % (21-51); MEAN CORPUSCULAR HEMOGLOBIN 31.7 PG (27.0-31.0); MEAN CORPUSCULAR HGB CONC 33.7 g/dL (33.0-36.5); MEAN CORPUSCULAR VOLUME 93.9 FL (78-98); MEAN PLATELET VOLUME 9.6 FL (7.4-10.4); MONOCYTES % (AUTO) 7.3 % (2-12); NEUTROPHILS # (AUTO) 10.8 X10'3 (1.8-7.7); NEUTROPHILS % (AUTO) 83.5 % (42-75); PLATELET COUNT 188 X10'3 (140-440); RED BLOOD COUNT 4.11 X10'6 (4.70-6.10); RED CELL DISTRIBUTION WIDTH 13.8 % (11.5-14.5)
[2021-05-06 21:44] LABS: ALANINE AMINOTRANSFERASE 13 U/L (12-78); ALBUMIN 3.8 G/DL (3.4-5.0); ALKALINE PHOSPHATASE 90 IU/L (46-116); ANION GAP 8 (8-16); ASPARTATE AMINO TRANSFERASE 15 U/L (10-37); BILIRUBIN,TOTAL 1.1 MG/DL (0.1-1.0); BLOOD UREA NITROGEN 12 MG/DL (7-18); BUN/CREATININE RATIO 12.1 (5.4-32.0); CALCIUM 8.7 MG/DL (8.5-10.1); CHLORIDE 103 MMOL/L (99-107); CREATININE 0.99 MG/DL (0.60-1.10); GLUCOSE 120 MG/DL (70-104); SODIUM 140 MMOL/L (135-145); TOTAL CARBON DIOXIDE 29.5 MMOL/L (24-32); TOTAL PROTEIN 7.5 G/DL (6.4-8.2); eGFR 78 ML/MIN
[2021-05-06 21:50] LABS: UA COLLECTION TYPE CLN CATCH MIDSTREAM
[2021-05-06 21:53] LABS: BACTERIA,URINE FEW /HPF (Neg); RBC,URINE 50-100 /HPF (0-2); SQUAMOUS EPITHELIAL CELL,UR NONE SEEN /LPF (FEW); WBC,URINE 50-100 /HPF (0-4)
[2021-05-06] MEDS ORDERED: CefTRIAXone 250MG inj IM ONE (22:20)
[2021-05-06] MEDS ORDERED: ketorolac tromethamine 15mg/ml inj. IM ONE (22:20)
[2021-05-06] MEDS ORDERED: levoFLOXACIN 250mg tablet PO ONE (22:20)
[2021-05-06] MEDS ORDERED: LEVO500T89 PO (22:23)
[2021-05-06] MEDS ORDERED: HYDR-3965 PO (22:23)
== END 2021-05-06 23:13 | disposition home or self-care (01) ==
LOC: ER 12:31
DX: N45.1 Epididymitis (principal); N39.0 Urinary tract infection, site not specified; N44.2 Benign cyst of testis; N50.812 Left testicular pain; Z85.038 Personal history of other malignant neoplasm of large intestine; Z98.890 Other specified postprocedural states; Z56.0 Unemployment, unspecified; Z79.899 Other long term (current) drug therapy
CPT/HCPCS: 36415; 76870; 80053; 81001; 85025; 87088; 93976; 96372; 99284; J0696; J1885

== ENCOUNTER 2021-05-27 15:44 | Emergency (ER) | payer MEDICAID ==
[~2021-05-27] VITALS: Ht 180.3 cm; Wt 81.8 kg
[2021-05-27 15:51] VITALS: BP 107/73
== END 2021-05-27 22:55 | disposition left against medical advice (07) ==
LOC: ER 15:45
DX: T14.8XXA Other injury of unspecified body region, initial encounter (principal); Z53.21 Procedure and treatment not carried out due to patient leaving prior to being seen by health care provider; W54.0XXA Bitten by dog, initial encounter; Y93.9 Activity, unspecified; Y92.9 Unspecified place or not applicable; Y99.9 Unspecified external cause status

== ENCOUNTER 2023-04-05 18:27 | Emergency (ER) | payer MEDICAID ==
[~2023-04-05] VITALS: Ht 180.3 cm; Wt 82.3 kg
[2023-04-05 18:43] VITALS: BP 108/78
[2023-04-05] MEDS ORDERED: bacitracin 15gm ointment TP ONE (20:30)
[2023-04-05] MEDS ORDERED: TETanus/Pertussis (Acell)/Diphther VAC/PF (Tdap-Adult) 0.5ml syringe IMVAC ONE (20:30)
[2023-04-05] MEDS ORDERED: amox tr/potassium clavulanate 875/125mg TAB PO ONE (20:30)
== END 2023-04-05 20:58 | disposition home or self-care (01) ==
LOC: ER 18:28
DX: S80.811A Abrasion, right lower leg, initial encounter (principal); W54.0XXA Bitten by dog, initial encounter; Y93.89 Activity, other specified; Y92.89 Other specified places as the place of occurrence of the external cause; Y99.8 Other external cause status
CPT/HCPCS: 90471; 90715; 99283

== ENCOUNTER 2024-06-23 12:42 | Emergency (ER) | payer MEDICAID ==
[~2024-06-23] VITALS: Ht 180.3 cm; Wt 84.4 kg
[2024-06-23 13:44] LABS: BASOPHILS # (AUTO) 0.1 X10'3 (0-0.2); BASOPHILS % (AUTO) 0.9 % (0-1); EOSINOPHILS # (AUTO) 0.3 X10'3 (0-0.9); EOSINOPHILS % (AUTO) 4.9 % (0-6); HEMATOCRIT 47.2 % (42.0-52.0); HEMOGLOBIN 15.6 g/dl (14.0-17.9); LYMPHOCYTES # (AUTO) 1.4 X10'3 (1.1-4.8); LYMPHOCYTES % (AUTO) 24.5 % (21-51); MEAN CORPUSCULAR HEMOGLOBIN 31.3 PG (27.0-31.0); MEAN CORPUSCULAR HGB CONC 33.1 g/dL (33.0-36.5); MEAN CORPUSCULAR VOLUME 94.3 FL (78-98); MEAN PLATELET VOLUME 10.1 FL (7.4-10.4); MONOCYTES # (AUTO) 0.5 X10'3 (0-0.9); MONOCYTES % (AUTO) 9.5 % (2-12); NEUTROPHILS # (AUTO) 3.4 X10'3 (1.8-7.7); NEUTROPHILS % (AUTO) 60.2 % (42-75); PLATELET COUNT 235 X10'3 (140-440); RED CELL DISTRIBUTION WIDTH 14.1 % (11.5-14.5); WHITE BLOOD COUNT 5.7 X10'3 (4.5-11.0)
[2024-06-23 14:00] LABS: ALANINE AMINOTRANSFERASE 26 U/L (12-78); ALBUMIN 4.5 G/DL (3.4-5.0); ALBUMIN/GLOBULIN RATIO 1.1 (1.1-1.5); ALKALINE PHOSPHATASE 117 IU/L (46-116); ANION GAP 11 (8-16); ASPARTATE AMINO TRANSFERASE 29 U/L (10-37); BILIRUBIN,TOTAL 0.6 MG/DL (0.1-1.0); BLOOD UREA NITROGEN 16 MG/DL (7-18); BUN/CREATININE RATIO 10.8 (10.0-20.0); CALCIUM 9.8 MG/DL (8.5-10.1); CHLORIDE 107 MMOL/L (99-107); CREATININE 1.48 MG/DL (0.60-1.10); GLUCOSE 63 MG/DL (70-104); LIPASE 41 U/L (16-77); POTASSIUM 5.2 MMOL/L (3.5-5.1); SODIUM 141 MMOL/L (135-145); TOTAL PROTEIN 8.5 G/DL (6.4-8.2); eCRCL 57 ML/MIN; eGFR 48 ML/MIN
[2024-06-23 14:05] LABS: BILIRUBIN,URINE SMALL (Neg); CLARITY,URINE CLEAR (Clear); COLOR,URINE YELLOW (Yellow); GLUCOSE, URINE NEGATIVE (Neg); KETONES,URINE NEGATIVE (Neg); LEUKOCYTE ESTERASE ,URINE NEGATIVE (Neg); NITRITES, URINE NEGATIVE (Neg); OCCULT BLOOD,URINE NEGATIVE (Neg); PH,URINE 5.5 (4.8-8.0); PROTEIN,URINE NEGATIVE (Neg); UROBILINOGEN,URINE 0.2 E.U/dL (0.2-1.0)
[2024-06-23 14:08] VITALS: TEMP 96.7
[2024-06-23 14:23] LABS: UA COLLECTION TYPE CLN CATCH MIDSTREAM
[2024-06-23 16:18] VITALS: BP 115/82; PULSE 79; RESP 14; O2SAT 97
== END 2024-06-23 16:24 | disposition home or self-care (01) ==
LOC: ER 12:43
DX: E88.09 Other disorders of plasma-protein metabolism, not elsewhere classified (principal); E86.0 Dehydration; R10.9 Unspecified abdominal pain; Z79.899 Other long term (current) drug therapy
CPT/HCPCS: 36415; 74018; 80053; 81003; 83690; 85025; 99284

== ENCOUNTER 2024-11-03 16:18 | Emergency (ER) | payer MEDICAID ==
[~2024-11-03] VITALS: Ht 180.3 cm; Wt 85.6 kg
[2024-11-03 17:51] VITALS: BP 132/77; PULSE 70; TEMP 96.5; O2SAT 99
[2024-11-03 17:52] VITALS: RESP 16
== END 2024-11-03 17:52 | disposition home or self-care (01) ==
LOC: ER 16:18
DX: T52.0X1A Toxic effect of petroleum products, accidental (unintentional), initial encounter (principal); R11.0 Nausea; Y92.89 Other specified places as the place of occurrence of the external cause; Z79.1 Long term (current) use of non-steroidal anti-inflammatories (NSAID); Z56.0 Unemployment, unspecified
CPT/HCPCS: 99281

== ENCOUNTER 2024-12-07 08:00 | Day surgery (SDC) | payer MEDICAID ==
[2024-12-07] VITALS (11 sets, daily range): BP systolic 104–126; BP diastolic 56–83; PULSE 52–80; RESP 12–17; O2SAT 55–100
[~2024-12-07] VITALS: Ht 180.3 cm; Wt 82.7 kg
[~2024-12-07 08:00] MED LIST changes: +GABA300T28; -HYDR-4383 PO
[2024-12-07] MEDS ORDERED: MIDAZolam 1 MG/ML 5ML VIAL ONE (09:42)
[2024-12-07] MEDS ORDERED: fentaNYL/PF 50MCG/1 ML 2ML syringe ONE (09:42)
[2024-12-07] MEDS ORDERED: diphenhydrAMINE 50 mg/ml inj ONE (09:42)
== END 2024-12-07 12:33 | disposition home or self-care (01) ==
LOC: GI LAB 08:00
PROVIDERS: ATTEND Internal Medicine Gastroenterology
DX: Z08 Encounter for follow-up examination after completed treatment for malignant neoplasm (principal); K63.5 Polyp of colon; Z85.038 Personal history of other malignant neoplasm of large intestine
CPT/HCPCS: 45385; 99152; J1200; J2250; J3010; J7030; Z7512; 99153; A4620; C1889

== ENCOUNTER 2025-01-25 12:08 | Emergency (ER) | payer MEDICAID ==
[~2025-01-25] VITALS: Ht 180.3 cm; Wt 92.5 kg
[2025-01-25 12:10] VITALS: TEMP 98.4
[2025-01-25 12:51] LABS: EOSINOPHILS # (AUTO) 0.3 X10'3 (0-0.9); EOSINOPHILS % (AUTO) 6.4 % (0-6); HEMATOCRIT 40.9 % (42.0-52.0); HEMOGLOBIN 13.5 g/dl (14.0-17.9); LYMPHOCYTES # (AUTO) 1.1 X10'3 (1.1-4.8); MEAN CORPUSCULAR HEMOGLOBIN 30.7 PG (27.0-31.0); MEAN CORPUSCULAR VOLUME 92.8 FL (78-98); MEAN PLATELET VOLUME 9.5 FL (7.4-10.4); MONOCYTES # (AUTO) 0.4 X10'3 (0-0.9); MONOCYTES % (AUTO) 9.7 % (2-12); NEUTROPHILS # (AUTO) 2.4 X10'3 (1.8-7.7); NEUTROPHILS % (AUTO) 57.9 % (42-75); PLATELET COUNT 201 X10'3 (140-440); RED CELL DISTRIBUTION WIDTH 14.6 % (11.5-14.5); WHITE BLOOD COUNT 4.2 X10'3 (4.5-11.0)
[2025-01-25 12:53] LABS: BILIRUBIN,URINE NEGATIVE (Neg); CLARITY,URINE CLEAR (Clear); COLOR,URINE YELLOW (Yellow); GLUCOSE, URINE NEGATIVE (Neg); KETONES,URINE NEGATIVE (Neg); LEUKOCYTE ESTERASE ,URINE NEGATIVE (Neg); NITRITES, URINE NEGATIVE (Neg); OCCULT BLOOD,URINE NEGATIVE (Neg); PROTEIN,URINE NEGATIVE (Neg); UROBILINOGEN,URINE 0.2 E.U/dL (0.2-1.0)
[2025-01-25 12:58] LABS: UA COLLECTION TYPE CLN CATCH MIDSTREAM
[2025-01-25 13:04] LABS: ALANINE AMINOTRANSFERASE 27 U/L (12-78); ALBUMIN 3.7 G/DL (3.4-5.0); ALBUMIN/GLOBULIN RATIO 1.2 (1.1-1.5); ALKALINE PHOSPHATASE 100 IU/L (46-116); ANION GAP 5 (8-16); ASPARTATE AMINO TRANSFERASE 18 U/L (10-37); BILIRUBIN,TOTAL 0.5 MG/DL (0.1-1.0); BLOOD UREA NITROGEN 9 MG/DL (7-18); BUN/CREATININE RATIO 9.5 (10.0-20.0); CALCIUM 8.7 MG/DL (8.5-10.1); CHLORIDE 108 MMOL/L (99-107); CREATININE 0.95 MG/DL (0.60-1.10); GLUCOSE 77 MG/DL (70-104); LIPASE 20 U/L (16-77); POTASSIUM 4.7 MMOL/L (3.5-5.1); SODIUM 143 MMOL/L (135-145); TOTAL CARBON DIOXIDE 29.9 MMOL/L (24-32); TOTAL PROTEIN 6.7 G/DL (6.4-8.2); eCRCL 88 ML/MIN; eGFR 81 ML/MIN
[2025-01-25] MEDS ORDERED: iohexol 300mg/ml 100ml inj. ONE (13:55)
[2025-01-25 14:57] VITALS: BP 135/66; PULSE 57; O2SAT 97
[2025-01-25] MEDS ORDERED: ketorolac trometh 30MG/ML vial 30 MG/ML VIAL IV ONE (15:35)
[2025-01-25 15:56] VITALS: RESP 16
[2025-01-25] MEDS: ketorolac trometh 15mg/ml vial 15 MG/ML ML IV ONE (15:56)
== END 2025-01-25 15:59 | disposition home or self-care (01) ==
LOC: ER 12:09
DX: S39.011A Strain of muscle, fascia and tendon of abdomen, initial encounter (principal); Z56.0 Unemployment, unspecified; Z85.038 Personal history of other malignant neoplasm of large intestine; X58.XXXA Exposure to other specified factors, initial encounter; Y93.89 Activity, other specified; Y92.89 Other specified places as the place of occurrence of the external cause; Y99.8 Other external cause status
CPT/HCPCS: 36415; 74177; 80053; 81003; 83690; 85025; 96374; 99285; J1885; Q9967